=== PATIENT | male | born 1965 | race Caucasian/White ===

== ENCOUNTER 2023-05-06 22:19 | Emergency (ER) | payer OTHER ==
[~2023-05-06] VITALS: Ht 170.2 cm; Wt 124.7 kg
[2023-05-06 22:21] VITALS: BP 147/56; RESP 16; TEMP 98.2; O2SAT 99
--- NOTE | 2023-05-06 22:21 | NUR ---
PT BIBA ALS ER BED 5
--- NOTE | 2023-05-06 22:35 | NUR ---
RADIOLOGY AT BEDSIDE
--- NOTE | 2023-05-06 23:35 | NUR ---
Pt BIB ALS with c/o pain on right ankle after tripping at 9 pm. Concious, AAOx4, Denies any PMHx and allergies. Denies hitting his head anywhere.
--- NOTE | 2023-05-07 00:45 | NUR ---
Cast done on bedside by emt and ERMD
[2023-05-07] MEDS ORDERED: IBUP-2213 PO (01:24)
[2023-05-07] MEDS ORDERED: ACET-10509 PO (01:24)
[2023-05-07] MEDS ORDERED: KETOROLAC 30 MG/ML VIAL IVP ONE (01:30)
--- NOTE | 2023-05-07 02:00 | NUR ---
health education provided regarding proper use of cast
[2023-05-07 02:14] VITALS: BP 147/56; PULSE 86; RESP 16; TEMP 98.2; O2SAT 99
--- NOTE | 2023-05-07 02:14 | NUR ---
Patient discharged with v/s stable. Written and verbal after care instructions given and explained. Patient alert, oriented and verbalized understanding of instructions. Wheel Chair Assisted with to car. All questions addressed prior to discharge. ID band removed. Patient advised to follow up with PMD. Rx given to pt. Patient educated on indication of medication including possible reaction and side effects. Opportunity to ask questions provided and answered.
--- NOTE | 2023-05-07 02:14 | NUR ---
reports 6/10 pain. unable to do pain reassessment on 247 due to pt is being discharge at this time
== END 2023-05-07 02:14 | disposition home or self-care (01) ==
LOC: MED 22:19
DX: S82.491A Other fracture of shaft of right fibula, initial encounter for closed fracture (principal); S82.291A Other fracture of shaft of right tibia, initial encounter for closed fracture; W01.0XXA Fall on same level from slipping, tripping and stumbling without subsequent striking against object, initial encounter; Y93.89 Activity, other specified; Y92.89 Other specified places as the place of occurrence of the external cause; Y99.8 Other external cause status
CPT/HCPCS: 29515; 73610; 96374; 99283; J1885; Q0092